=== PATIENT | male | born 2005 | race Caucasian/White ===

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

== ENCOUNTER 2024-04-29 15:11 | Outpatient (REF) | payer MEDICAID, SELFPAY ==
[2024-04-29 15:14] LABS: Abs Immature Grans 0.02 10^3/uL (0.0-0.06); Absolute Basophil Count 0.06 10^3/uL (0.0-0.2); Absolute Eosinophil Count 0.14 10^3/uL (0.0-0.7); Absolute Lymphocyte Count 2.03 10^3/uL (1.2-3.4); Absolute Monocyte Count 0.53 10^3/uL (0.1-0.8); Absolute Neutrophil Count 5.35 10^3/uL (1.2-6.7); Basophils % 0.7 %; Eosinophils % 1.7 %; HCT 45.7 % (40.0-50.0); Immature Grans % 0.2 %; MCH 25.7 pg (27.0-33.0); MCHC 32.8 % (32.0-36.0); MCV 78 fL (80-95); MPV 9.9 fL (8.0-11.0); Monocytes % 6.5 %; Neutrophils % 65.9 %; Platelet Count 357 10^3/uL (130-400); RBC 5.83 10^6/uL (4.36-5.78); RDW-SD 36.7 fL; WBC 8.13 10^3/uL (4.4-10.8)
[2024-04-29 15:47] LABS: ALT 35 U/L (16-63); AST 14 U/L (15-37); Alkaline Phosphatase 72 U/L (46-116); Anion Gap 10.2 mmol/L (3-11); BUN 10 mg/dL (7-18); Bilirubin, Total 0.32 mg/dL (0.2-1.0); CO2 26.8 mmol/L (21.0-32.0); CREATININE 0.8 mg/dL (0.70-1.30); Calcium 9.2 mg/dL (8.5-10.1); Calculated LDL 89 mg/dL (<100); Chloride 105 mmol/L (98-107); Cholesterol 146 mg/dL (<200); Estimated GFR 129.93 (mL/min/1.73m2); Glucose 114 mg/dL (74-106); HDL Cholesterol 46 mg/dL (40-60); Potassium 4.3 mmol/L (3.5-5.1); Sodium 142 mmol/L (136-145); TSH (W/Ref FT4) 2.63 uIU/mL (0.36-3.74); Total Protein 7.4 g/dL (6.4-8.2); Triglyceride 56 mg/dL (<150); Vitamin D 25 Total 25.1 ng/mL (30-100)
[2024-04-29 16:02] LABS: Lipase 19 U/L (16-77)
== END 2024-04-29 15:12 | disposition home or self-care (01) ==
LOC: NCHCN 15:11
PROVIDERS: PCP Family Medicine; Visit Provider Family Medicine
DX: Z68.44 Body mass index [BMI] 60.0-69.9, adult (principal); R10.9 Unspecified abdominal pain
CPT/HCPCS: 80053; 80061; 82306; 83690; 84443; 85025

== ENCOUNTER 2024-07-20 10:21 | Outpatient (CLI) | payer MEDICAID, SELFPAY ==
[2024-07-20 11:37] LABS: Abs Immature Grans 0.02 10^3/uL (0.0-0.06); Absolute Basophil Count 0.06 10^3/uL (0.0-0.2); Absolute Lymphocyte Count 2.38 10^3/uL (1.2-3.4); Absolute Monocyte Count 0.54 10^3/uL (0.1-0.8); Absolute Neutrophil Count 5.97 10^3/uL (1.2-6.7); Basophils % 0.7 %; Eosinophils % 1.1 %; HCT 46.9 % (40.0-50.0); HGB 15.3 g/dL (13.5-17.5); Immature Grans % 0.2 %; Lymphocytes % 26.2 %; MCH 26.2 pg (27.0-33.0); MCHC 32.6 % (32.0-36.0); MCV 80 fL (80-95); MPV 9.6 fL (8.0-11.0); Neutrophils % 65.8 %; Platelet Count 371 10^3/uL (130-400); RBC 5.85 10^6/uL (4.36-5.78); RDW 12.8 % (11.8-14.1); RDW-SD 36.6 fL; WBC 9.07 10^3/uL (4.4-10.8)
[2024-07-20 11:44] LABS: ALT 30 U/L (16-63); AST 12 U/L (15-37); Albumin 3.8 g/dL (3.4-5.0); Alkaline Phosphatase 72 U/L (46-116); Anion Gap 10.5 mmol/L (3-11); BUN 13 mg/dL (7-18); Bilirubin, Total 0.23 mg/dL (0.2-1.0); CO2 26.5 mmol/L (21.0-32.0); CREATININE 0.9 mg/dL (0.70-1.30); Calcium 9.5 mg/dL (8.5-10.1); Chloride 104 mmol/L (98-107); Estimated GFR 124.61 (mL/min/1.73m2); Glucose 98 mg/dL (74-106); Potassium 4.2 mmol/L (3.5-5.1); Sodium 141 mmol/L (136-145); Total Protein 7.9 g/dL (6.4-8.2)
[2024-07-22 09:48] LABS: EBNA IgG Negative (Negative); EBV Interpretation (See Note); VCA IgG Negative (Negative); VCA IgM Negative (Negative)
== END 2024-07-20 10:22 | disposition home or self-care (01) ==
LOC: LBO 10:22
PROVIDERS: PCP Family Medicine; Visit Provider Nurse Practitioner Family
DX: R59.0 Localized enlarged lymph nodes (principal)
CPT/HCPCS: 36415; 80053; 85025; 86664; 86665

== ENCOUNTER 2025-01-25 14:47 | Outpatient (REF) | payer MEDICAID, SELFPAY ==
[2025-01-25 17:01] LABS: ALT 26 U/L (16-63); AST 13 U/L (15-37); Albumin 4.1 g/dL (3.4-5.0); Alkaline Phosphatase 70 U/L (46-116); BUN 10 mg/dL (7-18); Bilirubin, Total 0.3 mg/dL (0.2-1.0); CREATININE 0.9 mg/dL (0.70-1.30); Calcium 9.4 mg/dL (8.5-10.1); Chloride 104 mmol/L (98-107); Estimated GFR 124.61 (mL/min/1.73m2); Glucose 96 mg/dL (74-106); Potassium 4.1 mmol/L (3.5-5.1); Sodium 142 mmol/L (136-145); Total Protein 7.3 g/dL (6.4-8.2); Vitamin D 25 Total 55 ng/mL (30-100)
[2025-01-25 17:16] LABS: Hemoglobin A1C 5.6 % (<5.7)
[2025-01-26 15:34] LABS: ANA Interpretation Negative (Negative)
== END 2025-01-25 14:48 | disposition home or self-care (01) ==
LOC: NCHCN 14:47
PROVIDERS: PCP Family Medicine; Visit Provider Family Medicine
DX: R73.03 Prediabetes (principal); E66.01 Morbid (severe) obesity due to excess calories; E55.9 Vitamin D deficiency, unspecified; M25.59 Pain in other specified joint
CPT/HCPCS: 80053; 82306; 83036; 86038